=== PATIENT | male | born 1980 | race Caucasian/White ===

== ENCOUNTER 2021-09-21 07:33 | Outpatient (REF) | payer BC, SELFPAY ==
--- NOTE | ~2021-09-21 | CT_ITS ---
EXAMINATION: CT HEAD WITHOUT CONTRAST CLINICAL INFORMATION: Altered mental status. COMPARISON: None TECHNIQUE: Contiguous axial imaging was performed from the skull base to vertex without intravenous administration of contrast. This CT examination was performed using dose optimization techniques as appropriate, variously including the following: *Automated exposure control *Adjustment of mA and/or kV according to patient size (this includes techniques or standardized protocols for targeted exams where dose is matched to indication/reason for exam; i.e. extremities or head) *Use of iterative reconstruction technique DLP: 946 mGy-cm FINDINGS: There is no evidence of acute intracranial hemorrhage or territorial infarction. No abnormal mass effect or midline shift is seen. Villa to white matter differentiation is well preserved. No extra-axial fluid collections are identified. The ventricles are normal in size. There is no abnormal attenuation within the brain parenchyma. The osseous structures and soft tissues are normal. There is a large polyp or cyst in the left maxillary sinus. The mastoid air cells and visualized portions of the paranasal sinuses are otherwise clear. CT/CT head/brain wo con IMPRESSION: No acute intracranial findings.
== END 2021-09-21 07:34 | disposition home or self-care (01) ==
LOC: HO.CT 07:33
PROVIDERS: Visit Provider Nurse Practitioner Family
DX: R41.82 Altered mental status, unspecified (principal)
CPT/HCPCS: 70450